=== PATIENT | male | born 1965 | race Caucasian/White ===

== ENCOUNTER → 2016-11-14 | Outpatient (CLI) | payer BC ==
[~2016-11-14] MED LIST: ATOR-26 PO; ESCI10TA17 PO; IBUP-103 PO; LXP/20 PO; METF500T5 PO; SIMV80TA2 PO; ZTA10 PO
[2016-11-14 17:20] LABS: BASO % 0.5 %; BASO ABS # 0.03 K/uL (0-0.2); COMPLETE YES; EOS % 1.1 %; IG% 0.2 %; LYMPH % 26.7 %; LYMPH ABS # 1.76 K/uL (1.2-3.4); MEAN CELL VOLUME 87.7 fL (80-100); MEAN CORPUSCULAR HEMOGLOBIN 30.5 pg (25-34); MEAN CORPUSCULAR HGB CONC 34.8 g/dl (32-36); MEAN PLATELET VOLUME 8.8 fL (7.4-10.4); MONO % 8.3 %; NEUT % 63.2 %; PLATELET COUNT 311 K/uL (130-400); RED BLOOD COUNT 4.56 M/uL (4.7-6.1); WHITE BLOOD COUNT 6.59 K/uL (4.8-10.8)
[2016-11-14 17:39] LABS: ALT/SGPT 29 U/L (12-78); AST/SGOT 24 U/L (15-37); BLOOD UREA NITROGEN 18 mg/dl (7-18); BUN/CREATININE RATIO 16.7 (10-20); CALCIUM 9.1 mg/dl (8.5-10.1); CARBON DIOXIDE 26 mmol/L (21-32); CHLORIDE 104 mmol/L (98-107); CHOLESTEROL 176 mg/dl (0-200); GLUCOSE 90 mg/dl (70-99); POTASSIUM 4.1 mmol/L (3.5-5.1); SODIUM 138 mmol/L (136-145)
[2016-11-14 17:41] LABS: URINE APPEARANCE CLEAR (CLEAR); URINE BILIRUBIN NEG (NEG); URINE COLOR YELLOW; URINE NITRITE NEG (NEG); URINE PH 5.5 (4.5-7.5); UROBILINOGEN NEG (NEG); ZZUR CULT IF INDIC CLEAN CATCH NO
[2016-11-14 17:48] LABS: MANUAL MICROSCOPIC REQUIRED? NO; REVIEW REQ? NO
[2016-11-14 17:50] LABS: ALB/GLOB RATIO 1.4 (0.9-2); ALKALINE PHOSPHATASE 77 U/L (45-117); CHOLESTEROL/HDL RATIO 3.6; HDL CHOLESTEROL 49 mg/dl; LDL CHOLESTEROL CALCULATED 89 mg/dl; PROSTATE SPECIFIC ANTIGEN 0.576 ng/ml (0.000-4.000); TRIGLYCERIDES 188 mg/dl (0-150); VERY LOW DENSITY LIPOPROT CALC 38 mg/dl
[2016-11-14 17:50] LABS: RATIO 12.4 mcg/mg (0-30.0)
[2016-11-15 06:00] LABS: ESTIMATED AVERAGE GLUCOSE 143 mg/dl; HA1C FLAG Normal (Normal)
== END | disposition home or self-care (01) ==
LOC: C.LAB 16:43
PROVIDERS: ATTEND Internal Medicine
DX: R73.01 Impaired fasting glucose (principal); E78.00 Pure hypercholesterolemia, unspecified; D64.9 Anemia, unspecified; Z12.5 Encounter for screening for malignant neoplasm of prostate

== ENCOUNTER 2016-12-11 15:01 | Emergency (ER) | payer BC ==
[~2016-12-11] VITALS: Ht 180.3 cm; Wt 100.0 kg
[~2016-12-11 15:01] MED LIST changes: -ATOR-26 PO; -IBUP-103 PO; -LXP/20 PO; -METF500T5 PO; -ZTA10 PO
[2016-12-11 15:02] VITALS: TEMP 36.5; Ht 180.3 cm; Wt 100.0 kg
[2016-12-11] MEDS ORDERED: IBUPROFEN 600 MG TAB PO STA (15:22)
--- NOTE | 2016-12-11 15:35 | DIAGNOSTIC IMAGING REPORT ---
LEFT KNEE 1 OR 2 VIEWS ROUTINE CLINICAL HISTORY: left knee pain, no trauma pain COMPARISON: None. DISCUSSION: The bones and joint spaces appear intact. There is no evidence of fracture, dislocation or bony disease. There is no evidence for soft tissue swelling. IMPRESSION: Negative study. Electronically signed by: Liam Morales M.D. 12/11/2016 3:33 PM Dictated Date/Time: 12/11/2016 3:33 PM
[2016-12-11] MEDS ORDERED: ZTA10 PO (15:42)
[2016-12-11] MEDS ORDERED: IBUP-103 PO (15:42)
[2016-12-11] MEDS ORDERED: METF500T5 PO (15:42)
[2016-12-11] MEDS ORDERED: LXP/20 PO (15:42)
[2016-12-11] MEDS ORDERED: ATOR-26 PO (15:42)
[2016-12-11 16:11] VITALS: BP 138/91; PULSE 78; O2SAT 95
--- NOTE | 2016-12-11 16:44 | EMERGENCY ROOM VISIT NOTE ---
History Report prepared by Mishel: Emily Nagy Under the Supervision of: Dr. Markel Li M.D. First contact with patient: 15:08 Chief Complaint: KNEEPAIN Stated Complaint: LEFT KNEE AND HIP PAIN History of Present Illness The patient is a 51 year old male who presents to the Emergency Room with complaints of worsening left knee pain starting today. The patient rates his pain as a 7/10 in severity. The patient states that when he went to his PCP he told the patient that he needed to get into shape. He states that he started walking about 3 miles a day. The patient notes that the pain started in his hip and radiated to his knee starting three weeks ago, but was bearable. He notes that today he came to the ED because he couldn't even stand on his knee without the feeling of it giving out from the pain. The patient notes that he has no previous injuries to his left knee and his hip is not bothering him today. He denies icing it, any signs of redness or swelling, any recent ticks/Lyme symptoms, and any major trips recently. He denies any pain in his foot and any recent trauma to his knee. He states he took Tylenol land Motrin with no relief. Pt denies LOC, headache, fevers, chills, diaphoresis, visual changes, neck pain, chest pain, breathing difficulties, nausea, vomiting, abdominal pain , back pain, melena, hematochezia, urinary symptoms, numbness, weakness, lymphadenopathy, rash, or other complaints. Source of History: patient Onset: today Position: knee (left) Symptom Intensity: 7/10 Timing: worsening Modifying Factors (Worsening): other (standing) Associated Symptoms: No abdominal pain, No back pain, No chest pain, No urinary symptoms Review of Systems See HPI for pertinent positives and negatives. A total of ten systems were reviewed and were otherwise negative. Past Medical & Surgical Medical Problems: (1) High cholesterol (2) Pre-diabetes Family History No pertinent family history Social History Smoking Status: Never Smoker Marital Status: Housing Status: lives with family Current/Historical Medications Scheduled Atorvastatin (Lipitor), 80 MG PO DAILY Escitalopram Oxalate (Escitalopram Oxalate), 20 MG PO DAILY Ezetimibe (Zetia), 10 MG PO DAILY Metformin Hcl Er (Glucophage Er), 2,000 MG PO QAM Scheduled PRN Ibuprofen Tab (Advil), 400 MG PO Q8 PRN for Pain Allergies Coded Allergies: No Known Allergies (Verified , 02/29/08) Physical Exam Vital Signs Date Time Temp Pulse Resp B/P Pulse Ox O2 Delivery O2 Flow Rate FiO2 12/11/16 16:11 78 16 138/91 95 12/11/16 15:02 36.5 80 16 148/91 96 Physical Exam GENERAL: Awake, alert, well-appearing, in no distress HENT: Normocephalic, atraumatic. Oropharynx unremarkable. EYES: Normal conjunctiva. Sclera non-icteric. NECK: Supple. No nuchal rigidity. FROM. No JVD. RESPIRATORY: Clear to auscultation. CARDIAC: Regular rate, normal rhythm. Extremities warm and well perfused. Pulses equal. ABDOMEN: Soft, non-distended. No tenderness to palpation. No rebound or guarding. No masses. MUSCULOSKELETAL: There is no CVA tenderness to palpation. No joint edema. No joint line or patella tenderness. Some pain elicited with knee ROM around 100 to 120 degrees. ROM zero to about 120 with pain elicited. Pain over the medial aspect of the knee joint with adduction force applied to lower leg. No laxity and negative anterior drawer. Negative Kira. Equivocal Nely's. LOWER EXTREMITIES: Calves are equal size bilaterally and non-tender. No edema. No discoloration. Negative Homans sign. NEURO: Normal sensorium. No sensory or motor deficits noted. Negative for SLR. SKIN: No rash or jaundice noted. No warmth or erythema on left knee. Medical Decision & Procedures ER Provider Diagnostic Interpretation: Radiology results as stated below per my review and radiologist interpretation: LEFT KNEE 1 OR 2 VIEWS ROUTINE CLINICAL HISTORY: left knee pain, no trauma pain COMPARISON: None. DISCUSSION: The bones and joint spaces appear intact. There is no evidence of fracture, dislocation or bony disease. There is no evidence for soft tissue swelling. IMPRESSION: Negative study. Electronically signed by: Liam Morales M.D. 12/11/2016 3:33 PM Dictated Date/Time: 12/11/2016 3:33 PM Medications Administered Medications (Trade) Dose Ordered Sig/Cisco Route Start Time Stop Time Status Last Admin Dose Admin Ibuprofen (Motrin Tab) 600 mg NOW STAT PO 12/11/16 15:22 12/11/16 15:23 DC 12/11/16 15:55 600 MG ED Course 1515: The patient was evaluated in room D6. A complete history and physical exam was performed. 1522: Ordered Ibuprofen 600 mg PO. 1556:I reevaluated the patient and he is doing okay. We discussed the option of more pain medications and he stated that he did not want any narcotics. 1608: I reevaluated the patient. Discussed results and discharge instructions: He verbalized understanding and agreement. The patient is ready for discharge. Medical Decision Prior records reviewed and summarized above. Triage Nursing notes reviewed and agree them. The patient's history was concerning for traumatic injury. Differential diagnosis: Etiologies such as fracture, dislocation, neurovascular compromise, compartment syndrome, soft tissue injury, as well as others were entertained. Physical examination: Consistent with isolated knee issues. Lower extremities are neurovascular intact. No saddle anesthesia. Negative straight leg raise. No back pain. No stigmata of DVT. ER treatment provided: Ice Oral Motrin Knee immobilizer Crutches Diagnostics interpreted by me: Imaging studies: Xrays as above. The patient has atraumatic knee pain. There is no sign of infection or arthritis. Conservative management was discussed. The patient was in agreement. He had prior knee problems on the other side and was treated by Dr. Jordan. He wishes to follow up with him in the office. By the evaluation outlined above emergent etiologies such as fracture, dislocation, neurovascular compromise, compartment syndrome, infections, DVT, as well as others were deemed relatively unlikely. The patient was informed about the findings as listed above. All questions were answered and he was pleased with the treatment. Return instructions were outlined and the patient was discharged in stable condition. Prescription management: Oxy IR Referral: The patient was referred to [] Orthopedics for follow-up care. The patient was referred to their primary care physician in 2 to 3 days for a recheck of your current condition. The chart was completed utilizing [employer] Speech voice recognition software. Grammatical errors, random word insertions, pronoun errors, and incomplete sentences are an occasional consequence of this system due to software limitations, ambient noise, and hardware issues. Any formal questions or concerns about the content, text, or information contained within the body of this dictation should be directly addressed to the physician for clarification. [place] Drug Monitoring Program Search Results: no issues identified Impression Primary Impression: Knee pain Scribe Attestation The scribe's documentation has been prepared under my direction and personally reviewed by me in its entirety. I confirm that the note above accurately reflects all work, treatment, procedures, and medical decision making performed by me. Departure Information Dispostion Home / Self-Care Referrals Ajit Martines M.D. (PCP) Forms HOME CARE DOCUMENTATION FORM, IMPORTANT VISIT INFORMATION Patient Instructions My [facility] Additional Instructions ORTHOPEDIC INSTRUCTIONS: Ibuprofen(Motrin, Advil) may be used for fever or pain. Use 600mg every six hours as needed. Take with food. Avoid using more than 2400mg in a 24 hour period. Do not use 2400mg per day for more than three consecutive days without physician direction. Prolonged inappropriate use can lead to stomach upset or ulcers. (AND/OR) Acetaminophen(Tylenol) may be used for fever or pain. Use 1000mg every six hours as needed. Avoid using more than 4000mg in a 24 hour period. Ice compresses for 20 minutes at a time four times daily for 2-3 days. Use the knee immobilizer as instructed. Remove your leg from the immobilizer 4- 6 times a day and move all the joints around to keep them loose. Rest and elevate your injury. Return to the ER immediately for any numbness, tingling, severe pain, extreme swelling in the extremity or as needed. Call [facility], [phone], tomorrow to arrange follow up for your injury. Problem Qualifiers Primary Impression: Knee pain Laterality: left Chronicity: acute Qualified Codes: M25.562 - Pain in left knee
== END 2016-12-11 16:21 | disposition home or self-care (01) ==
LOC: C.EDB 15:02 → C.EDD 16:21
DX: M25.562 Pain in left knee (principal); E78.00 Pure hypercholesterolemia, unspecified; R73.03 Prediabetes; Z79.899 Other long term (current) drug therapy

== ENCOUNTER → 2017-05-20 | Outpatient (CLI) | payer BC ==
[~2017-05-20] MED LIST changes: +ATOR-26 PO; -ESCI10TA17 PO; +IBUP-103 PO; +LXP/20 PO; +METF500T5 PO; -SIMV80TA2 PO; +ZTA10 PO
[2017-05-20 17:27] LABS: ESTIMATED AVERAGE GLUCOSE 140 mg/dl; HA1C FLAG Normal (Normal)
== END | disposition home or self-care (01) ==
LOC: C.LAB 17:00
PROVIDERS: ATTEND Internal Medicine
DX: R73.01 Impaired fasting glucose (principal)